=== PATIENT | male | born 1970 | race Caucasian/White ===

== ENCOUNTER 2018-02-10 11:00 | Outpatient (RCR) | payer BC, SELFPAY | END 2018-02-10 11:01 | disposition home or self-care (01) | LOC: PT 11:00 | PROVIDERS: Visit Provider Internal Medicine Adolescent Medicine | DX: M72.2 Plantar fascial fibromatosis (principal); M76.61 Achilles tendinitis, right leg | CPT/HCPCS: 97010; 97014; 97035; 97110; 97140; 97163; 97760; G0283 ==

== ENCOUNTER → 2020-03-22 14:08 | Outpatient (CLI) | payer OTHER, SELFPAY | PROVIDERS: PCP Internal Medicine Adolescent Medicine; Visit Provider Specialist | DX: G47.33 Obstructive sleep apnea (adult) (pediatric) (principal) | CPT/HCPCS: 95806 ==

== ENCOUNTER → 2020-11-20 14:16 | Outpatient (POV) | payer OTHER, SELFPAY | PROVIDERS: Visit Provider Dermatology | DX: Z00.00 Encounter for general adult medical examination without abnormal findings (principal) ==

== ENCOUNTER 2021-07-11 09:39 | Emergency (ER) | payer OTHER, SELFPAY ==
[2021-07-11 09:39] VITALS: BP 149/96; PULSE 77; RESP 18; TEMP 36.8; O2SAT 100; BMI 27.6
--- NOTE | 2021-07-11 09:39 | ECG_ITS ---
APPROVED REPORT Exam: Resting ECG HR:76 bpm ECG Measurements Heart Rate 76 AXES ME 164 P 61 QRSd 88 QRS -30 QT 372 T 19 QTc 418 Conclusion Normal sinus rhythm Left axis deviation Abnormal ECG Electronically signed by : Rajan Leal MD 07/13/2021 10:03:29
--- NOTE | 2021-07-11 09:49 | XR_ITS ---
PROCEDURE INFORMATION: Exam: XR Chest Exam date and time: 07/11/2021 9:49 AM Age: 51 years old Clinical indication: Other: Elevated hr and BP TECHNIQUE: Imaging protocol: XR of the chest. Views: 2 views. COMPARISON: ABDPELW CT ABD PELVIS W/ CONTRAST 12/15/2014 10:31 AM FINDINGS: Lungs: Unremarkable. No consolidation. Pleural spaces: Unremarkable. No pleural effusion. No pneumothorax. Heart/Mediastinum: Unremarkable. No cardiomegaly. Bones/joints: Unremarkable. IMPRESSION: No acute findings.
[2021-07-11 10:17] LABS: Basophils # 0.1 K/mm3 (0-0.2); Basophils % 2.4 % (0.1-2.0); Chloride 102 mmol/L (98-107); Eosinophils # 0.3 K/mm3 (0.0-0.4); Eosinophils % 4.9 % (0.1-12.0); Hemoglobin 14.6 g/dL (14.1-18.0); Lymphocytes # 2.2 K/mm3 (0.7-4.5); Lymphocytes % 35.6 % (10-50); Mean Corpuscular HGB Conc 33.3 g/dL (31.8-35.4); Mean Corpuscular Hemoglobin 29.5 pg (27.0-31.2); Mean Corpuscular Volume 88.8 fl (80-94); Monocytes # 0.4 K/mm3 (0.1-1.0); Monocytes % 5.9 % (1.7-9.3); Neutrophils # 3.1 K/mm3 (1.8-7.8); Neutrophils % 51.2 % (37.0-80.0); Platelet Count 350 K/mm3 (142-424); Red Blood Count 4.96 M/mm3 (4.60-6.20); Red Cell Distribution Width 14.6 % (11.5-17.5); White Blood Count 6.1 K/mm3 (4.8-10.8)
[2021-07-11 10:18] LABS: Potassium 3.8 mmoL/L (3.5-5.1); Sodium 140 mmol/L (136-145)
[2021-07-11 10:20] LABS: Alanine Aminotransferase 23 U/L (12-78); Alkaline Phosphatase 86 U/L (38-126); Aspartate Amino Transferase 41 U/L (17-59); Bilirubin,Total 0.4 mg/dl (0.2-1.3); Blood Urea Nitrogen 18 mg/dl (9-20); Creatinine Clearance Estimated 123 mL/min (50-200); Estimated Glomerular Filt Rate 79 ml/min (>60); GFR (African American) 96 ML/MIN (>60)
[2021-07-11 10:21] LABS: Albumin Level 4.8 g/dl (3.5-5.0); Albumin/Globulin Ratio 1.7 (1.1-1.8); Anion Gap 13.8 mEq/L (5-15); Calcium 9.4 mg/dl (8.4-10.2); Carbon Dioxide 28 mmol/L (22.0-30.0); Globulin 2.8 g/dL (1.3-3.2); Glucose 115 mg/dl (74-100); Total Protein,Serum 7.6 g/dl (6.3-8.2)
[2021-07-11 10:26] LABS: D-Dimer 0.57 ug/mL (0.0-0.5)
--- NOTE | 2021-07-11 10:36 | HMH.EDGENADL ---
ED Disposition Clinical Impression: Palpitations, Dizziness Disposition: Home, Self-Care Condition on Discharge: Good Instructions: Cardiac Arrhythmia (Alternative Therapy) Referrals: Sherif Mallory MD [Staff Physician] - 3 days (new palpitations/lightheadedness) Time of Disposition: 12:05 - Critical Care Critical Care Time: No Attestation: On 07/11/21, the high probability of a clinically significant, sudden or life threatening deterioration of the following system(s) required my full and direct attention, intervention and personal management. The time I documented below is in addition to time spent performing reported procedures but includes the following listed in this critical care notation. Medical Decision Making - Medical Records Medical records reviewed: Yes: I reviewed the patient's medical records. - Leandro Inquiry Pt receiving controlled substance: No Vital Signs: 07/11/21 09:39 Temperature 98.3 F Temperature Source Oral Pulse Rate [Right Radial] 77 Respiratory Rate 18 Blood Pressure [Right Arm] 149/96 H Blood Pressure Mean [Right Arm] 113 Blood Pressure Source [Right Arm] Automatic Cuff Blood Pressure Position [Right Arm] Sitting 02 Sat by Pulse Oximetry 100 Oxygen Delivery Method Room Air - Lab Data Lab Results 07/11/21 09:42: WBC 6.1, RBC 4.96, Hgb 14.6, Hct 44.0, MCV 88.8, MCH 29.5, MCHC 33.3, RDW 14.6, Plt Count 350, MPV 7.0 L, Neut % (Auto) 51.2, Lymph % (Auto) 35.6, [place] % (Auto) 5.9, Eos % (Auto) 4.9, Baso % (Auto) 2.4 H, Neut # (Auto) 3.1, Lymph # (Auto) 2.2, [place] # (Auto) 0.4, Eos # (Auto) 0.3, Baso # (Auto) 0.1 07/11/21 09:42: Sodium 140, Potassium 3.8, Chloride 102, Carbon Dioxide 28, Anion Gap 13.8, BUN 18, Creatinine 1.00, Estimated Creat Clear 123, Estimated GFR 79, Est GFR ( Amer) 96, Glucose 115 H, Calcium 9.4, Total Bilirubin 0.4, AST 41, ALT 23, Alkaline Phosphatase 86, Troponin I < 0.01, Total Protein 7.6, Albumin 4.8, Globulin 2.8, Albumin/Globulin Ratio 1.7 07/11/21 09:42: D-Dimer 0.57 H Result diagrams: 07/11/21 09:42 07/11/21 09:42 Orders (Tests/Meds): ED MEDICATIONS Discontinued Medications Generic Name Dose Route Start Last Admin Trade Name Brook PRN Reason Stop Dose Admin Iopamidol 70 ml 07/11/21 11:37 07/11/21 11:38 Iopamidol-370 (76%);100ml Bottle IV 07/11/21 11:38 70 ml ONCE ONE Administration Sodium Chloride 50 ml 07/11/21 11:37 07/11/21 11:38 0.9 % Sodium Chloride 50 Ml Vial IV 07/11/21 11:38 50 ml ONCE ONE Administration Sodium Chloride 10 ml 07/11/21 11:37 07/11/21 11:38 Sodium Chloride 0.9% 10ml Syr (Rad Only) IV 07/11/21 11:38 10 ml ONCE ONE Administration ORDERS Category Date Time Status Troponin I Q3H Lab 07/11/21 13:00 Ordered Troponin I Q3H Lab 07/11/21 16:00 Ordered Medical Decision Narrative: 51-year-old male presents to the emergency department with a chief complaint of heart palpitations and dizziness. Patient states that he has been experiencing lightheadedness, dizziness, and heart palpitations since 2 days after receiving the Jose & Jose vaccine on . Patient does not have any medical history or take any medications. Patient became hypertensive and very dizzy today after taking a Sudafed, and elected to present to the emergency department. He has not been evaluated for these problems prior to now. Patient will be fully evaluated with a CBC, CMP, troponin, EKG, two-view chest x-ray, and D-dimer. A bedside echo was obtained which did not show any wall motion abnormalities, arrhythmias, or valvular abnormalities. Patient remained in normal sinus rhythm with a normal blood pressure throughout his emergency department stay. On reevaluation, patient has a troponin of less than 0.01, remainder of labs are within normal limits aside from D-dimer which is mildly elevated at 0.57. Given patient's clinical symptoms and history, and elevated D-dimer we will obtain a CT angio
[2021-07-11 10:41] LABS: Troponin I < 0.01 ng/ml (0.00-0.034)
--- NOTE | 2021-07-11 10:47 | CT_ITS ---
PROCEDURE INFORMATION: Exam: CTA Chest With Contrast Exam date and time: 07/11/2021 10:47 AM Age: 51 years old Clinical indication: Pain; Chest pressure; Additional info: Eval for pe; S/P j j vaccine w/ cp and palpitation TECHNIQUE: Imaging protocol: Computed tomographic angiography of the chest with contrast. 3D rendering (Not supervised by radiologist): MIP and/or 3D reconstructed images were created by the technologist. Radiation optimization: All CT scans at this facility use at least one of these dose optimization techniques: automated exposure control; mA and/or kV adjustment per patient size (includes targeted exams where dose is matched to clinical indication); or iterative reconstruction. Contrast material: ISOVUE 370; Contrast volume: 70 ml; Contrast route: INTRAVENOUS (IV); COMPARISON: CR XR CHEST 2V 07/11/2021 9:48 AM FINDINGS: Pulmonary arteries: No evidence of pulmonary embolus to the segmental level. Aorta: No aneurysm of the aorta. No dissection of the aorta. Lungs: Unremarkable. No consolidation. No masses. Pleural spaces: Unremarkable. No pneumothorax. No pleural effusion. Heart: Unremarkable. No cardiomegaly. No pericardial effusion. Lymph nodes: Unremarkable. No enlarged lymph nodes. Diaphragm: Small hiatal hernia Bones/joints: Unremarkable. No acute fracture. Soft tissues: Unremarkable. IMPRESSION: 1. No evidence of pulmonary embolus to the segmental level. 2. No aneurysm of the aorta. 3. No dissection of the aorta.
--- NOTE | 2021-07-11 12:10 | P.PCN_ITS ---
[facility] Procedure Note Procedure Note:: Bedside cardiac US performed: Normal LV and RV function, no dilated ventricles; atria non-dilated; No valvular abnormalities; normal appearing EF; No pericardial effusion or fat pad.
[2021-07-11 12:23] VITALS: BP 122/88; PULSE 78; RESP 18; TEMP 36.8; O2SAT 98
== END 2021-07-11 12:25 | disposition home or self-care (01) ==
PROVIDERS: Emergency Provider Emergency Medicine; PCP Internal Medicine Adolescent Medicine
DX: R42 Dizziness and giddiness (principal); R00.2 Palpitations; K21.9 Gastro-esophageal reflux disease without esophagitis
CPT/HCPCS: 71046; 71275; 80053; 84484; 85025; 85378; 93005; 99283; Q9967

== ENCOUNTER → 2021-07-12 11:59 | Outpatient (CLI) | payer OTHER, SELFPAY | PROVIDERS: PCP Internal Medicine Adolescent Medicine; Visit Provider Emergency Medicine | DX: R00.2 Palpitations (principal) | CPT/HCPCS: 93225; 93226 ==

== ENCOUNTER → 2021-07-22 12:51 | Outpatient (CLI) | payer OTHER, SELFPAY ==
--- NOTE | 2021-07-22 12:52 | CA_ITS ---
APPROVED REPORT EXAM: Comprehensive 2D, Doppler, and color-flow Echocardiogram Robotype Operator: Nette Adorno RT(R) Ht: 6 ft 2 in Wt: 214lbs BSA: 2.24 BP: 130/93 mmHg Indications: SOA, palpitations, dizziness, family history of HD 2D Dimensions LVOT 2.01 cm (M/F) 1.5-2.5 LVEF (Boles's) 55.70 % M: 52 - 72 LV Volume 111.20 mL M: 62 - 150 LV Volume Index 49.86 mL/m2 M: 34 - 74 LA Volume 36.20 mL LA Volume Index 16.23 mL/m2 (M/F) 16-34 M-Mode Dimensions RVDd 2.94 cm (0.9-2.6) LA Diam 3.54 cm (1.9-4.0) LVDd 4.67 cm (3.5-5.7) Ao Diam 3.54 cm (2.0-3.7) LVDs 3.58 cm (3.5-5.7) IVSd 0.81 cm (0.6-1.1) PWd 0.76 cm (0.6-1.1) EF (Teich) 46.70% FS 23.30% EDV (Teich) 100.80 mL ESV (Teich) 53.70 mL LV Diastology E Decel Time 133.00 (160-240 msec) E/A Ratio 0.9 MED E' 8.60 (< 7 cm/sec) E'/MED E' Ratio 7.08 (>14) LAT E' 12.50 (<10 cm/sec) E/LAT E' Ratio 4.87 (>14) Mitral Valve MV E Max Bam. 61.00 (40-130 cm/s) MV A Velocity 68.00 (40-130 cm/s) E/A Ratio 0.90 MV Decel. Time 133.00 (160-240 ms) MV PHT 39.00 ms Left Ventricle Left atrium is normal size, left ventricle is normal size, there is no concentric left ventricular hypertrophy, visually estimated ejection fraction 55% with no regional wall motion abnormality, diastolic parameters are inconclusive. Right Ventricle Right atrium and right ventricle relatively normal size and function. Aortic Valve Aortic valve is grossly normal, there is no aortic stenosis or aortic insufficiency. Mitral Valve Mitral valve is grossly normal, there is trace mitral regurgitation. Tricuspid Valve Tricuspid grossly normal, there is trace tricuspid regurgitation, tricuspid regurgitation jet velocity is inadequate for calculation of the right ventricular systolic pressure. Pulmonic Valve Pulmonic valve is poorly visualized. Great Vessels Aortic root is normal size. Inferior vena cava is normal size with normal inspiratory collapse. Pericardium No significant pericardial effusion noted. Conclusion 1. Normal left ventricular size, preserved left ventricular systolic function, visually estimated ejection fraction 55% with no regional wall motion abnormality, diastolic parameters are inconclusive. 2. Trace mitral and tricuspid regurgitation. 3. No significant pericardial effusion noted. 4. Inferior vena cava is normal size with normal inspiratory collapse. Electronically signed by : Randolph Santillan MD 07/22/2021 21:49:04
--- NOTE | 2021-07-22 12:52 | CA_ITS ---
APPROVED REPORT Exam: Exercise Treadmill Technologist: Codie Maier, Ht: 6 ft 2 in Wt: 214 lbs BSA: 2.24 m2 HR: 69 bpm BP: 145/96 mmHg Medical History Medications: Omeprazole,,,,, Stress Test Details Test: Brigido HR Resting HR: 77 bpm Max Heart Rate (APMHR): 171.235172 bpm Max HR Achieved: 190 bpm Target HR (85% APMHR): 145.624218 bpm % of APMHR: 111.11 Recovery HR: 103 bpm BP Resting BP: 152/101 mmHg Max BP: 200/110 mmHg Recovery BP: 142.0/91.0 mmHg ECG Resting ECG: NSR, Inferior T wave inversion Clinical Reason for Termination: Dyspnea Exercise duration: 14:16 min Highest Stage Achieved: Exercise capacity: 14.8 METs Stress ECG Conclusion Exercised 14min 16sec Max HR: 190 % of PM: 130 METs: 14.8 Test stopped due to: SOA Symptoms: No CP Arrhythmia/Ectopy: None ST-T Changes: <1.5mm ST Segment changes Conclusion: Negative Test Summary REST . . . . . . . Sitting REST . . . . . . . Standing REST 03:55 0.0 1.2 77 . 152/101 . . Stage 1 01:00 10.0 1.7 94 . . . . Stage 1 02:00 10.0 1.7 100 . . . . Stage 1 03:00 10.0 1.7 102 . 158/102 . . Stage 2 01:00 12.0 2.5 115 . . . . Stage 2 02:00 12.0 2.5 114 . . . . Stage 2 03:00 12.0 2.5 113 . 162/100 . . Stage 3 01:00 14.0 3.4 130 . . . . Stage 3 02:00 14.0 3.4 136 . . . . Stage 3 03:00 14.0 3.4 142 . 160/100 . . Stage 4 01:00 16.0 4.2 155 . . . . Stage 4 02:00 16.0 4.2 163 . . . . Stage 4 03:00 16.0 4.2 169 . 200/110 . . Stage 5 01:00 18.0 5.0 182 . . . . Stage 5 02:00 18.0 5.0 189 . . . . Stage 5 02:16 18.0 5.0 189 . . . Stop exercise at 14:16 RECOVERY 01:00 0.0 0.0 161 . . . . RECOVERY 02:00 0.0 0.0 127 . . . . RECOVERY 03:00 0.0 0.0 108 . 158/ 98 . . RECOVERY 04:00 0.0 0.0 112 . 144/ 85 . . RECOVERY 05:00 0.0 0.0 101 . 144/ 85 . . RECOVERY 06:00 0.0 0.0 105 . 144/ 85 . . RECOVERY 06:37 0.0 0.0 100 . 142/ 91 . . Electronically signed by : Randolph Santillan MD 07/22/2021 21:55:24
== END ==
PROVIDERS: PCP Internal Medicine Adolescent Medicine; Visit Provider Internal Medicine
DX: R00.2 Palpitations (principal); R40.0 Somnolence; R42 Dizziness and giddiness
CPT/HCPCS: 93017; 93306

== ENCOUNTER → 2021-07-26 13:50 | Outpatient (CLI) | payer OTHER, SELFPAY ==
--- NOTE | 2021-07-26 13:51 | CA_ITS ---
APPROVED REPORT Conference Interpreter: RODGER Laterality: Bilateral Study Quality: Good Indications: dizziness,HTN Doppler Spectral Velocity Analysis dICA (R) 67.90/28.70 cm/s dICA (L) 125.80/52.60 cm/s Francesca (R) 70.50/21.50 cm/s Francesca (L) 82.60/29.10 cm/s pICA (R) 71.20/21.50 cm/s pICA (L) 93.60/26.70 cm/s dCCA (R) 106.70/38.80 cm/s dCCA (L) 108.50/38.40 cm/s pCCA (R) 111.50/28.80 cm/s pCCA (L) 100.90/25.20 cm/s Vert (R) 38.80/15.20 cm/s Vert (L) 53.70/17.90 cm/s ICA/CCA 0.70 ICA/CCA 1.20 Findings The right carotid arterial system appeared to be normal without stenosis of the bulb or internal carotid artery. The left carotid arterial system appeared to be normal without stenosis of the bulb or internal carotid artery. Antegrade flow seen bilateral vertebral arteries. Conclusion The right carotid arterial system appeared to be normal without stenosis of the bulb or internal carotid artery. The left carotid arterial system appeared to be normal without stenosis of the bulb or internal carotid artery. Antegrade flow seen bilateral vertebral arteries. Electronically signed by : Cleveland León MD 07/26/2021 16:05:43
== END ==
PROVIDERS: PCP Internal Medicine Adolescent Medicine; Visit Provider Urology
DX: R42 Dizziness and giddiness (principal)
CPT/HCPCS: 93880

== ENCOUNTER → 2021-08-02 10:30 | Outpatient (CLI) | payer OTHER, SELFPAY ==
[2021-08-02 11:35] LABS: Chol/HDL Ratio 3.4 (1-3.5); Cholesterol 228 mg/dl (140-200); HDL Cholesterol 67 mg/dl (40-60); Lipase 64 U/L (23-300); Triglycerides 169 mg/dl (30-150); VLDL Cholesterol 34 mg/dL (0-40)
[2021-08-02 11:38] LABS: Anion Gap 12.2 mEq/L (5-15); Blood Urea Nitrogen 15 mg/dl (9-20); Calcium 9.7 mg/dl (8.4-10.2); Carbon Dioxide 26 mmol/L (22.0-30.0); Chloride 103 mmol/L (98-107); Estimated Glomerular Filt Rate 90 ml/min (>60); GFR (African American) 109 ML/MIN (>60); Glucose 88 mg/dl (74-100); Potassium 4.2 mmoL/L (3.5-5.1); Sodium 137 mmol/L (136-145)
[2021-08-02 11:46] LABS: Direct LDL Cholesterol 107.33 mg/dL (100-129)
== END ==
PROVIDERS: Internal Medicine Adolescent Medicine; Visit Provider Urology
DX: R42 Dizziness and giddiness (principal); R00.2 Palpitations; R40.0 Somnolence
CPT/HCPCS: 36415; 80048; 80061; 83690

== ENCOUNTER → 2021-08-26 14:42 | Outpatient (CLI) | payer OTHER, SELFPAY | PROVIDERS: Visit Provider Nurse Practitioner | DX: U07.1 COVID-19 (principal) | CPT/HCPCS: C9803; U0003; U0005 ==

== ENCOUNTER → 2021-12-11 16:04 | Outpatient (CLI) | payer OTHER, SELFPAY | PROVIDERS: PCP Internal Medicine Adolescent Medicine; Visit Provider Surgery | DX: Z01.812 Encounter for preprocedural laboratory examination (principal); Z11.52 Encounter for screening for COVID-19; Z12.11 Encounter for screening for malignant neoplasm of colon | CPT/HCPCS: C9803; U0003; U0005 ==

== ENCOUNTER 2021-12-13 06:25 | Day surgery (SDC) | payer OTHER, SELFPAY ==
[2021-12-13 07:06] VITALS: BP 124/84; PULSE 73; RESP 18; TEMP 36.7; O2SAT 100; BMI 26.9
[2021-12-13 07:31] VITALS: O2SAT 100
--- NOTE | 2021-12-13 07:40 | P.PN_ITS ---
[facility] Anesthesia Checklist - Patient Identification Patient Identification: Arm Band, Verbal (Name & ) - Structural Data Admitted From: Home Planned Operative Procedure/s: Colonoscopy Consent for Planned Operative Procedure(s) Verified: Yes Verified Documents: Surgical Consent - NPO Status Verified Time NPO: 04:00 - Airway Assessment C-Spine Mobility Assessed: Yes TMJ Mobility Assessed: Yes Dentition: Good Dentition - Neurological Assessment Level of Consciousness: Awake, Alert, Appropriate - Anesthesia Plan Anesthesia Risk discussed: Yes ASA Class: II Anesthesia Type: MAC [facility] History Medical History: Reports:: Hypertension, Palpitations Denies:: Cancer, Diabetes Mellitus Type 1, Diabetes Mellitus Type 2, Internal Pacemaker, MRSA, Seizures *Have you ever received a pneumonia vaccine?: No *Have you received a flu vaccine this season?: No Anesthesia experience/problems:: none Other Surgeries: Yes: No Previous Surgery. No: Pacemaker Amputation: No Fractures: No - *Social History Last grade of school completed: Advanced degree Smoking Status: Former smoker Tobacco Type: cigarettes #Yrs smoked (if former smoker): 10 Smoking End Date: 1999 Alcohol Intake: never Substance Use Type: denies use *Occupational Status:: employed Housing: house Household Members: spouse *Travel in the last 8 weeks: None Family Hx:: Cancer
[2021-12-13 07:55] VITALS: BP 97/60; PULSE 74; RESP 16; TEMP 36.1; O2SAT 95
--- NOTE | 2021-12-13 08:00 | P.PCN_ITS ---
- Procedure: Date: 12/13/21 Patient Date of :: 1970 Procedure Performed:: Total colonoscopy Indications:: 51-year-old male referred by Dr. Rajan Leal for initially screening colonoscopy. No prior colonoscopy. The patient has had some left-sided abdom inal pain mostly in the left upper quadrant for several months. This is intermittent. There are no exacerbating or alleviating factors. No change in bowel habits. Not related to bowel movements. Performing Provider:: Franc Tariq MD Referring Provider:: Rajan Leal MD Sedation:: MAC sedation Procedure:: Patient was taken to endoscopy procedure room. He was positioned in lateral decubitus position. Adequate intravenous sedation was achieved with anesthesia titration of propofol. Digital examination was performed which revealed slightly elevated sphincter tone. Limited palpation of the prostate was unremarkable. Variable stiffness Olympus colonoscope was inserted via the anus. Colonoscope was advanced to the cecum. Colonic preparation was very poor as there was undigested vegetable matter and roughage throughout the colon. This obscured visualization. However the ileocecal valve was able to be identified. Attempts made to irrigate this without success. Colonoscope was slowly withdrawn through the colon. Retroflexion within the rectum revealed no evidence of any pathologic internal hemorrhoids. There were no obstructing masses. But visualization was very poor. Colonoscope was withdrawn. Findings:: No obstructing mass Very poor preparation with large amount of undigested vegetable matter/roughage which obscured visualization Recommendations:: Repeat colonoscopy with actual low residue diet for approximately 1 week leading into colonoscopy and clear liquids the day before. Complications:: None immediately apparent Estimated blood obtained (mL): 0
[2021-12-13 08:05] VITALS: BP 101/64; PULSE 74; RESP 16; O2SAT 97
[2021-12-13 08:15] VITALS: BP 114/68; PULSE 72; RESP 16; O2SAT 98
[2021-12-13 08:30] VITALS: BP 124/65; PULSE 74; RESP 16; TEMP 36.1; O2SAT 99
== END 2021-12-13 08:30 | disposition home or self-care (01) ==
LOC: OUTP 06:26
PROVIDERS: PCP Internal Medicine Adolescent Medicine; Visit Provider Surgery
PROC: 0DJD8ZZ Inspection of Lower Intestinal Tract, Via Natural or Artificial Opening Endoscopic (ICD-10-PCS; CPT 45378; principal; 2021-12-13 07:30)
DX: Z12.11 Encounter for screening for malignant neoplasm of colon (principal); I10 Essential (primary) hypertension; R00.2 Palpitations; Z87.891 Personal history of nicotine dependence; Z80.9 Family history of malignant neoplasm, unspecified; Z88.2 Allergy status to sulfonamides; Z79.899 Other long term (current) drug therapy
CPT/HCPCS: 45378

== ENCOUNTER 2025-02-13 08:14 | Outpatient (CLI) | payer OTHER, SELFPAY ==
--- OUTSIDE RECORDS SUMMARY | 2025-02-13 08:19 | XMS_ITS | Clinical Summary ---
Author Organization Healthcare Address [address] [place] [address] Care Team Providers Care Resolution Analyst Name Role Phone Rajan Leal MD Primary Care Provider [phone] Family History Medical History Relation Name Comments Other cancer Father Other cancer Mother Colon cancer Other 1 Liver disease Other 2 Relation Name Status Comments Father Mother Other 1 Other 2 Social History Tobacco Use Types Packs/Day Years Used Date Smoking Tobacco: Former Alcohol Use Standard Drinks/Week Comments Not Currently 0 (1 standard drink = 0.6 oz pure alcohol) Alcoholic Drinks/day: Former consumption of alcohol Sex and Gender Information Value Date Recorded Sex Assigned at Male 12/23/2023 9:40 AM EDT Legal Sex Male 7:58 PM EDT Gender Identity Male 12/23/2023 9:40 AM EDT Sexual Orientation Straight 12/23/2023 9: 40 AM EDT Last Filed Vital Signs Vital Sign Reading Time Taken Comments Blood Pressure - - Pulse - - Temperature - - Respiratory Rate - - Oxygen Saturation - - Inhaled Oxygen Concentration - - Weight 90.3 kg (199 lb 0.2 oz) 02/26/2015 11:28 AM EDT Height 188 cm (6' 2 ) 02/26/2015 11:28 AM EDT Body Mass Index 25.55 02/26/2015 11:28 AM EDT Plan of Treatment Health Maintenance Due Date Last Done Comments [facility]-Depression Screening 1970 [facility]-Infant/Child/Adol SDOH Screenings 1970 [facility]- SDOH Screenings 01/28/1990 [facility]-Adult SDOH Screenings 01/28/1990 [facility]-Hepatitis B Vaccines (1 of 3 - 19+ 3-dose series) 01/28/1991 CT Colonography 01/28/2017 Colonoscopy 01/28/2017 FIT-DNA 01/28/2017 FIT 01/28/2017 FOBT 01/28/2017 Sigmoidoscopy 01/28/2017 [facility]-Colorectal Cancer Screening 01/28/2017 [facility]-Pneumococcal Vaccine: 50 + Years (1 of 1 - PCV) 01/28/2022 [facility]-Zoster Vaccines (1 of 2) 01/28/2022 [id number] Vaccine (2 - season) 2024 06/29/2021 [facility]-Influenza Vaccine (Seaso n Ended) 2025 05/18/2020, 05/20/2018, 05/29/2017 [facility]-DTaP,Tdap,and Td Vaccine s (2 - Td or Tdap) 05/31/2030 05/31/2020 [facility]-Hepatitis A Vaccines Aged Out 018, 03/05/2018 No longer eligible based on patient's age to complete this topic HPV Vaccines Aged Out No longer eligi ble based on patient's age to complete this topic [facility]-HIB Vaccines Aged Out No longer e ligible based on patient's age to complete this topic [facility]-IPV Vaccines Aged Out No longer e ligible based on patient's age to complete this topic [facility]-Rotavirus Vaccines Aged Out No lo nger eligible based on patient's age to complete this topic Care Teams Resolution Analyst Relationship Specialty Start Date End Date Rajan Lela MD [address] [place] [address] [place] [address] PCP - General 12/28/20
--- OUTSIDE RECORDS SUMMARY | 2025-02-13 08:19 | XMS_ITS | Encounter Summary ---
Author Organization Healthcare Address [address] [place] [address] Care Team Providers Care Linux Unix Engineer Name Role Phone Rajan Leal MD Primary Care Provider [phone] Encounter Details Date Type Department Care Team (Late st Contact Info) Description 10/09/2023 Community [facility] [address] [place] [address] Irma Candelario, BIOASSAYIST [address] [place] [address] Social History Tobacco Use Types Packs/Day Years [...] Orientation Straight 12/23/2023 9: 40 AM EDT documented as of this encounter Plan of Treatment Not on file documented as of this encounter Visit Diagnoses Not on filedocumented in this encounter Care Teams Linux Unix Engineer Relationship Specialty Start Date End Date Rajan Leal MD [address] [place] [address] PCP - General 12/28/20 documented as of this encounter
[2025-02-13 08:52] LABS: Basophils # 0.1 K/mm3 (0-0.2); Eosinophils % 0.4 % (0.1-12.0); Hematocrit 39.3 % (42.0-52.0); Hemoglobin 13.8 g/dL (14.1-18.0); Immature Granulocytes # 0.01 10^3uL; Immature Granulocytes % 0.2 %; Lymphocytes # 1.4 K/mm3 (0.7-4.5); Lymphocytes % 28.9 % (10-50); Mean Corpuscular HGB Conc 35.1 g/dL (31.8-35.4); Mean Corpuscular Hemoglobin 30.7 pg (27.0-31.2); Mean Corpuscular Volume 87.3 fl (80-94); Mean Platelet Volume 8.8 fl (7.4-10.4); Monocytes # 0.4 K/mm3 (0.1-1.0); Monocytes % 7.9 % (1.7-9.3); Neutrophils % 61.6 % (37.0-80.0); Nucleated Red Blood Cells # 0 10^3/uL; Nucleated Red Blood Cells % 0 %; Platelet Count 294 K/mm3 (142-424); Red Cell Distribution Width 12.9 % (11.5-17.5); Red Cell Distribution Width-SD 41.2 fL; White Blood Count 4.8 K/mm3 (4.8-10.8)
[2025-02-13 10:39] LABS: Albumin Level 4.6 g/dl (3.5-5.0); Chloride 104 mmol/L (98-107); Sodium 139 mmol/L (136-145)
[2025-02-13 10:40] LABS: Potassium 4.2 mmoL/L (3.5-5.1)
[2025-02-13 10:42] LABS: Alanine Aminotransferase 22 U/L (12-78); Albumin/Globulin Ratio 1.9 (1.1-1.8); Alkaline Phosphatase 75 U/L (38-126); Anion Gap 13.2 mEq/L (5-15); Aspartate Amino Transferase 29 U/L (17-59); Bilirubin,Total 0.7 mg/dl (0.2-1.3); Blood Urea Nitrogen 22 mg/dl (9-20); Carbon Dioxide 26 mmol/L (22.0-30.0); Cholesterol 253 mg/dl (140-200); Estimated Glomerular Filt Rate 70 ml/min (>60); GFR (African American) 85 ML/MIN (>60); Globulin 2.4 g/dL (1.3-3.2); Triglycerides 91 mg/dl (30-150); VLDL Cholesterol 18 mg/dL (0-40)
[2025-02-13 10:43] LABS: Calcium 9.4 mg/dl (8.4-10.2); Chol/HDL Ratio 3.8 (1-3.5); Glucose 93 mg/dl (74-100); HDL Cholesterol 67 mg/dl (40-60)
[2025-02-13 11:24] LABS: Direct LDL Cholesterol 113.37 mg/dL (100-129)
[2025-02-14 11:57] LABS: Vitamin B12 370 pg/mL (239-931)
[2025-02-14 12:23] LABS: Iron 134 ug/dL (49-181)
[2025-02-14 12:38] LABS: Total Iron Binding Capacity 319 ug/dL (261-462)
[2025-02-14 13:00] LABS: Ferritin 37.1 ng/ml (17.9-464)
== END 2025-02-13 23:59 | disposition home or self-care (01) ==
LOC: LAB 08:17
PROVIDERS: PCP Nurse Practitioner Family; Visit Provider Nurse Practitioner Family
DX: Z00.00 Encounter for general adult medical examination without abnormal findings (principal); I10 Essential (primary) hypertension
CPT/HCPCS: 36415; 80053; 80061; 82607; 82728; 83540; 83550; 85025; G0103

== ENCOUNTER 2025-02-24 10:29 | Outpatient (CLI) | payer OTHER, SELFPAY ==
[2025-02-24 10:24] VITALS: BMI 27.2
--- OUTSIDE RECORDS SUMMARY | 2025-02-24 10:32 | XMS_ITS | Clinical Summary ---
Author Organization Healthcare Address [address] [place] [address] Care Team Providers Care Radiologic Technologist Name Role Phone Rajan Leal MD Primary Care Provider [phone] Family History Medical History Relation Name Comments [...] 01/28/2022 [facility]-Zoster Vaccines (1 of 2) 01/28/2022 [id number] Vaccine (2 - season) 2024 06/29/2021 [facility]-Influenza Vaccine (#1) 04/17/202505/18, 05/20/2018, 05/29/2017 [facility]-DTaP,Tdap,and Td Vaccine s (2 [...] age to complete this topic Care Teams Radiologic Technologist Relationship Specialty Start Date End Date Rajan Leal MD [address] [place] [address] [place] [id number] PCP - General 12/28/20
--- OUTSIDE RECORDS SUMMARY | 2025-02-24 10:32 | XMS_ITS | Encounter Summary ---
Author Organization Healthcare Address [address] [place] [address] Care Team Providers Care Retail Business Analyst Name Role Phone Rajan Leal MD Primary Care Provider [phone] Encounter Details Date Type Department Care Team (Late st Contact Info) Description 10/09/2023 Community [facility] [address] [place] [address] Irma Candelario, WELLNESS SPECIALIST [address] [place] [address] Social History Tobacco Use Types [...] on filedocumented in this encounter Care Teams Retail Business Analyst Relationship Specialty Start Date End Date Rajan Leal MD [address] [place] [address] PCP - General 12/28/20 documented as of this encounter
--- NOTE | 2025-02-24 10:56 | ECG_ITS ---
APPROVED REPORT Exam: Resting ECG HR:75 bpm ECG Measurements Heart Rate 75 AXES MA 170 P 51 QRSd 98 QRS 1 QT 361 T 31 QTc 390 Conclusion SINUS RHYTHM NORMAL ECG UNCONFIRMED REPORT Electronically signed by : Rajan Leal MD 02/26/2025 08:07:24
== END 2025-02-24 23:59 | disposition home or self-care (01) ==
PROVIDERS: PCP Nurse Practitioner Family; Visit Provider Surgery
DX: Z01.810 Encounter for preprocedural cardiovascular examination (principal)
CPT/HCPCS: 93005

== ENCOUNTER 2025-03-20 07:05 | Day surgery (SDC) | payer OTHER, SELFPAY ==
[2025-03-20] VITALS (9 sets, daily range): BP systolic 109–137; BP diastolic 69–74; PULSE 71–93; RESP 16–18; TEMP 36.1–36.8; O2SAT 98–100; BMI 27.6
--- NOTE | 2025-03-20 08:00 | EXP.ANES.CKL ---
[facility] Disclaimer: The information contained in this section may have been updated after the patient was seen, as this information can be updated by other users. Medical History HTN (hypertension) Headache WANG (obstructive sleep apnea) WANG and COPD overlap syndrome Daytime somnolence Surgical History History of colonoscopy Family History Other Cancer Hypertension Social History Smoking Status: Former smoker tobacco type: cigarettes second hand exposure: No alcohol intake: never substance use type: denies use current occupational status: employed Travel in the last 8 weeks?: None household members: spouse housing: house marital status: current occupation: IT SALES current occupational exposures/hazards: No caffeine: Yes Have you lived/traveled outside US in past 30 days?: No Contact w/someone who lives/traveled outside US past 30 days?: No Exposure to someone with infectious disease in past 14 days?: No Do you have a fever (greater than 100.4 F or 38 C)?: No Have you tested positive for COVID-19?: No Exposed to someone with COVID-19 in past 14 days?: No Do you have a sore throat?: No Do you have a cough?: No Do you have any weakness?: No Do you have any diarrhea?: No Are you experiencing any unusual bleeding?: No Do you have any muscle aches/pain?: No Do you have any abdominal pain?: No Are you experiencing loss of taste or smell?: No [facility] Anesthesia Checklist Patient Identification Patient Identification: Arm Band and Verbal (Name & ) Structural Data Admitted From: Home Planned Operative Procedure/s: cyst removal from herad Consent for Planned Operative Procedure(s) Verified: Yes Verified Documents: Surgical Consent and History and Physical NPO Status Verified Time NPO: 00:00 Additional verifications Anesthesia Reactions: No Hx Blood Transfusions: No Blood Transfusion Reaction: No Airway Assessment Mallampati Score:: Class II Dentition: Good Dentition Neurological Assessment Level of Consciousness: Awake, Alert and Appropriate Anesthesia Plan Anesthesia Risk discussed: Yes Anesthesia Plan: Verified ASA Class: II Anesthesia Type: General
[2025-03-20] MEDS: BUPIVACAINE 0.5% W/EPI 1:200,000 30ML VIAL 30 ML IJ (08:28)
[2025-03-20] MEDS: LIDOCAINE 1% 20ML MDV 20 ML (08:28)
--- NOTE | 2025-03-20 08:53 | EXP.OP.NOTE ---
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 He was given preoperative antibiotics. Limited clipping of hair around the palpable cyst was performed. The area was prepped and draped in the standard surgical fashion. Boundaries of the palpable lesion were marked. Skin was marked for planned incision. Local anesthetic was infiltrated. Skin incision was made. Dissection was carefully carried down to the cyst capsule. This was dissected free from the surrounding subcutaneous tissues. Cyst was sent off as a specimen. Hemostasis was achieved with electrocautery. Additional local anesthetic was infiltrated. Dermal tissues were closed with a single 3-0 Vicryl suture. Skin was closed with leia. Dermabond and dressing was applied. Condition: stable Disposition: PACU Complications:: None immediately apparent
--- NOTE | 2025-03-20 09:00 | EXP.ANES.I ---
[facility] Anesthesia Record Part I Anesthesia Record I Intake, IV Amount: 800 Hydration: Adequate Estimated blood loss (mL): 5 Urine output (mL): 0 Blood Products used (#): none Blood Pressure: 137/74 SaO2: 98 Pulse Rate: 93 Airway Patency: Patent Respiratory Rate: 16 Temperature: 98.2 F Patient is:: Drowsy and Stable Stable to PACU at:: 09:00
--- NOTE | 2025-03-20 09:32 | SUR.PHASEI ---
0930- patient's VSS. dressing is clean, dry and intact. No Complaints of pain. 0931- Patient transported to post op via stretcher. Report given to Otto Rosa RN.
--- NOTE | 2025-03-20 11:30 | EXP.ANES.II ---
[facility] Anesthesia Record Part II Anesthesia Record Part II Discharge Time: 09:30 Destination: Surgical Day Care (OP Surgery) PACU nurse assessment reviewed?: Yes Patient Condition:: Good Anesthesia Complications:: None Swallowing reflex intact?: Yes Airway Patency: Patent Cyanosis?: No Blood Pressure: 127/72 SaO2: 100 Respiratory Rate: 18 Pulse Rate: 71 Temperature: 98.2 F Mental Status: Alert & Oriented Pain level:: 0 Nausea and/or vomitting:: None Intake, IV Amount: 0 Hydration: Adequate
== END 2025-03-20 10:01 | disposition home or self-care (01) ==
PROVIDERS: PCP Nurse Practitioner Family; Visit Provider Surgery
PROC: (CPT 21012; principal; 2025-03-20 09:00)
DX: L72.9 Follicular cyst of the skin and subcutaneous tissue, unspecified (principal); I10 Essential (primary) hypertension; G47.33 Obstructive sleep apnea (adult) (pediatric); Z87.891 Personal history of nicotine dependence; Z79.899 Other long term (current) drug therapy
CPT/HCPCS: 21012; 96374; J0690; J1100; J2003; J2250; J2405; J2704; J2795; J3010